=== PATIENT | male | born 1990 | race Caucasian/White ===

== ENCOUNTER 2024-12-31 22:09 | Emergency (ER) | payer OTHER, SELFPAY ==
[2024-12-31 22:10] VITALS: BP 146/90
--- NOTE | 2024-12-31 23:49 | ED.GENMED ---
History of Present Illness
General
Chief Complaint: Musculo-Skeletal Complaint
Source: patient
Exam Limitations: none
Time Seen by Provider: 12/31/24 23:44
Nursing documentation reviewed up to this point in time: agreed with
History of Present Illness
History of Present Illness:
This is a 34-year-old male with no past medical history who presents emergency department with concerns of right shoulder pain for the past 2 weeks. Patient reports that it originally started in the right side of his neck and radiate down the
shoulder. He no longer has neck pain. 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 He reports that the pain is intermittent and he feels like the pain will come in spasms and
when the spasms come, he has limited range of motion of the shoulder due to pain and tightness. He denies any numbness or tingling. He denies any pallor or swelling. Of note, patient was concerned because his dog was recently diagnosed with Lyme
disease and a week after, he noticed that there was a tick in his cell. Denies any bull's-eye rash. Denies any fevers or chills.
Review of Systems
Review of Systems
All Other Systems: ROS reviewed and negative except as documented in HPI and ROS
Phy Exam
Physical Exam
Physical Exam:
General: Patient is well appearing and in no acute distress; non-toxic
Skin: Warm and dry, no rashes or lesions. Brisk capillary refill.
Head: Normocephalic, atraumatic
Eyes: Sclera non-icteric. EOMs intact.
Neck: No midline spinal tenderness, no paracervical tenderness
Cardiac: Regular rate
Pulm: Normal respiratory effort
Musculoskeletal: Limited right shoulder abduction secondary to pain; no pain with internal and external rotation of right shoulder. Tenderness over the biceps tendon. Negative yeargason's test.
Neuro: CN II-XII intact, no focal neurologic deficits. Sensation intact.
Psychiatric: Appropriate mood and affect.
Course
Orders/Labs/Results
Orders:
Orders
12/31/24 23:58
Lyme Progressive Urgent
01/01/25 00:05
CR Shoulder - Right Min 2 View Urgent
Reason For Exam: right shoulder pain
Vital Signs
Initial and Last Documented VS:
Initial Vital Signs
Temp Pulse Resp BP Pulse Ox
97.8 F 65 16 146/90 100
12/31/24 22:10 12/31/24 22:10 12/31/24 22:10 12/31/24 22:10 12/31/24 22:10
Last Documented Vital Signs
Temp Pulse Resp BP Pulse Ox
97.8 F 67 17 129/95 98
12/31/24 22:10 01/01/25 01:24 01/01/25 01:24 01/01/25 01:24 01/01/25 01:24
MDM/Problems Addressed
Differential Diagnosis Includes:
ddx include shoulder sprain/strain, biceps tendinitis, osteoarthritis, rotator cuff tear
MDM/Problems Addressed:
This is a 34-year-old male with no past medical history who presents emergency department with concerns of right shoulder pain for the past 2 weeks. Patient reports that it originally started in the right side of his neck and radiate down the
shoulder. He no longer has neck pain but feels tightness and spastic pain intermittently in his shoulder. On physical exam he is well-appearing in no acute distress he does have a lot of pain with shoulder abduction but internal and external
rotation is intact. Suspect shoulder strain versus biceps tendinitis. Will trial Medrol Dosepak considering length of symptoms.
Patient is also concerned about lyme disease as his dog tested positive for Lyme. Do not suspect current symptoms related to this but will send off for Lyme testing considering patient's concern.
Patient stable for discharge.
*Critical Care Note
Total Time (30-74mins, 75-104mins- exclusive of procedures): Not Applicable
ED Attending Note
-
Portions of this chart may have been created with voice recognition software.� Occasional wrong word or��sound alike� substitutions may have occurred due to the inherent limitations of voice recognition software.
Discharge Plan
Departure
Patient Disposition: Home (Routine Discharge)
Date of Disposition: 01/01/25
Time of Disposition: 01:18
Patient with high blood pressure during this ER visit?: Yes
Condition: Good
Discharge Problem:
Biceps tendinitis of right shoulder
Instructions: Biceps tendinopathy, BLOOD PRESSURE
Prescriptions:
New
methylprednisolone [Medrol (Dimitry)] 4 mg tablets,dose pack
See Rx Instructions .ROUTE .COMPLEX Qty: 21 0RF
Rx Instructions:
orally per package directions
Referrals:
Osiel Livingston MD [Active, Orthopedics] - Call in 1-3 days for appt
NONE,* [Family Provider, Internal Medicine]
Activity Restrictions/Additional Instructions:
Medrol dose pack has been sent to your pharmacy. Please follow package instructions for dosing.
PLEASE RETURN EMERGENCY DEPARTMENT SHOULD YOU DEVELOP LOSS OF SENSATION IN YOUR RIGHT UPPER EXTREMITY, PALLOR, SWELLING, OR ANY OTHER SIGNS OR SYMPTOMS WORRISOME TO YOU.
Interventions
Interventions:
*Risk Screen - Suicide Last Done: 12/31/24 22:13
*Neglect/Abuse Screening Last Done: 12/31/24 22:13
*Nursing Disposition Last Done: 01/01/25 01:24
ED-Musculoskeletal Assessment Last Done: 12/31/24 23:00
Discharge Date and Time
Discharge Date/Time: 01/01/25 01:24
Print Language: LATVIAN
[2025-01-01 01:24] VITALS: BP 129/95
[2025-01-02 16:08] LABS: Lyme Antibody Screen, EIA Negative (Negative)
== END 2025-01-01 01:24 | disposition home or self-care (01) ==
LOC: EMR 22:09
PROVIDERS: Physician Assistant; EMERGENCY PHYSICIAN Student in an Organized Health Care Education/Training Program
DX: M75.21 Bicipital tendinitis, right shoulder (principal); M25.511 Pain in right shoulder; R03.0 Elevated blood-pressure reading, without diagnosis of hypertension
CPT/HCPCS: 99283; 73030; 86618